=== PATIENT | female | born 1965 | race Caucasian/White ===

== ENCOUNTER 2017-01-31 14:39 | Emergency (ER) | payer OTHER ==
[2017-01-31 15:54] LABS: RBC URINE 6 /hpf (0-3); URINE BACTERIA RARE (<OCC); URINE BILIRUBIN NEGATIVE (NEGATIVE); URINE BLOOD 1+ (NEGATIVE); URINE COLOR Yellow (YELLOW); URINE GLUCOSE (UA) NORMAL (Normal); URINE HYALINE CAST 0-2 /lpf (0-2); URINE KETONE NEGATIVE (NEGATIVE); URINE LEUKOCYTE ESTERASE NEG Leu/uL (Negative); URINE PROTEIN NEGATIVE (NEGATIVE); WBC URINE 1 /hpf (0-5)
[2017-01-31 19:52] LABS: BASO % 0.1 % (0.0-2.0); EOS # 0.1 K/uL (0.0-0.7); EOS % 0.7 % (0.0-4.0); HEMATOCRIT 41.5 % (34.0-47.0); LYMPH % 27.3 % (20.0-40.0); MEAN CELL VOLUME 89.6 fL (81.0-99.0); MEAN CORPUSCULAR HEMOGLOBIN 30.4 pg (27.0-31.0); MEAN PLATELET VOLUME 9.1 fL (7.2-11.7); MONO # 0.5 K/uL (0.0-0.8); MONO % 6.4 % (0.0-10.0); NRBC % 0.1 % (0.0-2.0); RED CELL DISTRIBUTION WIDTH 14.1 % (11.5-14.5); WHITE BLOOD COUNT 7.5 K/uL (4.8-10.8)
[2017-01-31 20:02] LABS: CHLORIDE 95 mmol/L (98-107); POTASSIUM 3.9 mmol/L (3.6-5.2); SODIUM 140 mmol/L (132-148)
[2017-01-31 20:04] LABS: ALB/GLOB RATIO 1.2 (1.0-2.1); ALKALINE PHOSPHATASE 75 U/L (38-126); AST/SGOT 26 U/L (14-36); BILIRUBIN,TOTAL 0.5 mg/dL (0.2-1.3); CARBON DIOXIDE 29 mmol/L (22-30); GFR AFRICAN-AMERICAN > 60; TOTAL PROTEIN 8.3 g/dL (6.3-8.3)
[2017-01-31 20:05] LABS: ALT/SGPT 44 U/L (9-52); BLOOD UREA NITROGEN 11 mg/dL (7-17); CALCIUM 9.6 mg/dl (8.6-10.4); GLUCOSE,RANDOM 89 mg/dL (65-105)
[2017-01-31] MEDS ORDERED: Sodium Chloride 0.9% 1,000 ML IV ONE (20:17)
[2017-01-31] MEDS ORDERED: Sodium Chloride 0.9% 1,000 ML ONE (21:14)
--- NOTE | 2017-01-31 22:28 | US ---
EXAM: US Pelvis Complete, Transabdominal CLINICAL HISTORY: 51 years old, female; Pain; Pelvic pain; Additional info: Left pelvic pain TECHNIQUE: Real-time transabdominal pelvic ultrasound (complete) with image documentation. COMPARISON: No relevant prior studies available. FINDINGS: Uterus/cervix: Retroverted uterus. Uterus measures 7.1 x 3.5 x 4.7 cm in size. No myometrial mass. Endometrium: 0.7 cm in thickness. Nabothian cyst. Right ovary: 2.7 x 1.6 x 2.2 cm in size. 1.3 x 1.1 x 1.1 cm anechoic lesion. Small follicles. Normal flow. Left ovary: 3.2 x 1.8 x 2.7 cm in size. 1.7 x 1.2 x 1.5 cm anechoic lesion. Small follicles. Normal flow. Free fluid: No significant free fluid. Bladder: Unremarkable as visualized. IMPRESSION: 1. Ovarian cysts. 2. Incidental/non-acute findings are described above. EXAM: US Pelvis, Transvaginal CLINICAL HISTORY: 51 years old, female; Pain; Pelvic pain; Additional info: Left pelvic pain TECHNIQUE: Real-time transvaginal pelvic ultrasound (complete) with image documentation. Transvaginal imaging was used for better evaluation of the endometrium and adnexa. COMPARISON: No relevant prior studies available. FINDINGS: Uterus/cervix: Retroverted uterus. Uterus measures 7.1 x 3.5 x 4.7 cm in size. No myometrial mass. Endometrium: 0.7 cm in thickness. Nabothian cyst. Right ovary: 2.7 x 1.6 x 2.2 cm in size. 1.3 x 1.1 x 1.1 cm anechoic lesion. Small follicles. Normal flow. Left ovary: 3.2 x 1.8 x 2.7 cm in size. 1.7 x 1.2 x 1.5 cm anechoic lesion. Small follicles. Normal flow. Free fluid: No significant free fluid. Bladder: Empty bladder which cannot be evaluated with this probe.
--- NOTE | 2017-01-31 23:00 | C.PDOC ---
Time Seen by Provider: 01/31/17 19:50 Chief Complaint (Nursing): Abdominal Pain History Per: Patient Onset/Duration Of Symptoms: Days (about 1 week), Intermittent Episodes Current Symptoms Are (Timing): Still Present Severity: Moderate Location Of Pain/Discomfort: LLQ Quality Of Discomfort: "Pain" Exacerbating Factors: None Alleviating Factors: None Additional History Per: Prior Records Abnormal Vaginal Bleeding: No Past Medical History Reviewed: Historical Data, Nursing Documentation, Vital Signs Vital Signs: Last Vital Signs Temp 98.6 F 01/31/17 21:22 Pulse 64 01/31/17 21:22 Resp 18 01/31/17 21:22 BP 98/66 L 01/31/17 21:22 Pulse Ox 98 01/31/17 21:22 - Medical History PMH: HTN Family History: States: Unknown Family Hx - Social History Hx Tobacco Use: No Hx Alcohol Use: No Hx Substance Use: No - Immunization History Hx Tetanus Toxoid Vaccination: No Hx Influenza Vaccination: No Hx Pneumococcal Vaccination: No Review Of Systems Except As Marked, All Systems Reviewed And Found Negative. Constitutional: Negative for: Fever Cardiovascular: Negative for: Chest Pain Respiratory: Positive for: Cough. Negative for: Shortness of Breath, Hemoptysis Gastrointestinal: Negative for: Vomiting, Diarrhea Genitourinary: Positive for: Pelvic Pain. Negative for: Dysuria Musculoskeletal: Negative for: Neck Pain, Back Pain Skin: Negative for: Rash Neurological: Negative for: Weakness, Numbness Physical Exam - Physical Exam Appears: Non-toxic, No Acute Distress Skin: Normal Color, Warm, Dry, No Rash Head: Atraumatic, Normacephalic Eye(s): bilateral: Normal Inspection, PERRL, EOMI Neck: Normal ROM, Supple Cardiovascular: Rhythm Regular Respiratory: Normal Breath Sounds, No Accessory Muscle Use Gastrointestinal/Abdominal: Soft, Tenderness (mild LLQ), No Guarding, No Rebound Back: No CVA Tenderness Extremity: Normal ROM Neurological/Psych: Oriented x3, Normal Motor, Normal Sensation ED Course And Treatment - Laboratory Results Result Diagrams: 01/31/17 19:46 01/31/17 19:46 Lab Interpretation: No Acute Changes Urine POC: Negative O2 Sat by Pulse Oximetry: 98 Pulse Ox Interpretation: Normal - CT Scan/US Pelvic US Other Rad Studies (CT/US): Read By Radiologist, Radiology Report Reviewed CT/US Interpretation: IMPRESSION: 1. Ovarian cysts. 2. Incidental/non-acute findings are described above. Reassessment Condition: Improved Disposition Counseled Patient/Family Regarding: Studies Performed, Diagnosis, Need For Followup, Rx Given - Disposition Referrals: Antione Ramos [Staff Provider] - Disposition: HOME/ ROUTINE Disposition Time: 23:00 Condition: IMPROVED Additional Instructions: Follow up with a [employer] for further evaluation and treatment. Return to the ER if you develop fever, vomiting, vaginal bleeding or discharge, worsening of symptoms or if you have any other concerns. Prescriptions: Naproxen [Naprosyn] 1 tab PO BID PRN #20 tab PRN Reason: Pain Instructions: Ovarian Cyst (ED) Forms: [employer] (Palauan) Print Language: SCOTTISH - Clinical Impression Clinical Impression: Ovarian cyst, bilateral
[2017-01-31 23:13] VITALS: BP 131/82; PULSE 82; RESP 16; TEMP 97.6; O2SAT 97
== END 2017-01-31 23:13 | disposition home or self-care (01) ==
LOC: C.ER 14:39
DX: N83.202 Unspecified ovarian cyst, left side (principal); N83.201 Unspecified ovarian cyst, right side
CPT/HCPCS: 76830; 76856; 80053; 81001; 83690; 84703; 85025; 85610; 85730; 96361; 96374; 99285; J1885; J7040

== ENCOUNTER 2017-04-23 09:41 | Emergency (ER) | payer OTHER ==
[2017-04-23 09:42] VITALS: BMI 32.9
[2017-04-23 09:50] VITALS: BP 142/88; PULSE 56; RESP 20; TEMP 97.7; O2SAT 99
[2017-04-23 10:47] LABS: BASO % 0.3 % (0.0-2.0); EOS # 0.1 K/uL (0.0-0.7); EOS % 2.3 % (0.0-4.0); HEMATOCRIT 35.7 % (34.0-47.0); LYMPH # 1.8 K/uL (1.0-4.3); LYMPH % 41.8 % (20.0-40.0); MEAN CORPUSCULAR HGB CONC 34.8 g/dL (33.0-37.0); MEAN PLATELET VOLUME 9.2 fL (7.2-11.7); MONO # 0.4 K/uL (0.0-0.8); MONO % 8.7 % (0.0-10.0); RED CELL DISTRIBUTION WIDTH 13.4 % (11.5-14.5); WHITE BLOOD COUNT 4.2 K/uL (4.8-10.8)
[2017-04-23 10:51] LABS: ALB/GLOB RATIO 1.3 (1.0-2.1); ALKALINE PHOSPHATASE 65 U/L (38-126); ALT/SGPT 49 U/L (9-52); AST/SGOT 27 U/L (14-36); BILIRUBIN,TOTAL 0.3 mg/dL (0.2-1.3); BLOOD UREA NITROGEN 12 mg/dL (7-17); CALCIUM 8.1 mg/dl (8.6-10.4); CARBON DIOXIDE 29 mmol/L (22-30); CHLORIDE 104 mmol/L (98-107); GFR AFRICAN-AMERICAN > 60; GLUCOSE,RANDOM 107 mg/dL (65-105); POTASSIUM 4.1 mmol/L (3.6-5.2); SODIUM 139 mmol/L (132-148); TOTAL PROTEIN 7.1 g/dL (6.3-8.3)
--- NOTE | 2017-04-23 10:52 | C.PDOC ---
History Of Present Illness 51 y/o female with no PMHx presents with throat pain and difficulty swallowing since eating chicken soup on Tuesday. She states that she recalls swallowing a piece of chicken and felt there was a piece of bone in it, which she was unable to remove. Pain is mostly left sided, feels sharp, and worsens with swallowing. Patient states she has only been eating oatmeal-like foods and liquids for the past week. Denies fever. Time Seen by Provider: 04/23/17 09:53 Chief Complaint (Nursing): ENT Problem History Per: Patient History/Exam Limitations: None Onset/Duration Of Symptoms: Days (x 6) Current Symptoms Are (Timing): Still Present Past Medical History Reviewed: Historical Data, Nursing Documentation, Vital Signs Vital Signs: Last Vital Signs Temp 97.7 F 04/23/17 09:48 Pulse 56 L 04/23/17 09:48 Resp 20 04/23/17 09:48 BP 142/88 04/23/17 09:48 Pulse Ox 99 04/23/17 12:25 - Medical History PMH: HTN Denies: Chronic Kidney Disease Surgical History: No Surg Hx Family History: States: Unknown Family Hx - Social History Hx Tobacco Use: No Hx Alcohol Use: No Hx Substance Use: No - Immunization History Hx Tetanus Toxoid Vaccination: No Hx Influenza Vaccination: No Hx Pneumococcal Vaccination: No Review Of Systems Except As Marked, All Systems Reviewed And Found Negative. Constitutional: Negative for: Fever Respiratory: Negative for: Shortness of Breath Physical Exam - Physical Exam Additional Physical Exam Comments: Constitutional: No acute distress. Head: Normocephalic. Atraumatic. Eyes: PERRL. ENT: Throat appears normal. No stridor. No palpable mass. Neck: Supple. Cardiovascular: Regular rate. Radial pulse 2+ bilaterally. Chest: No tenderness. Respiratory: Clear to auscultation bilaterally. GI: Soft. Nontender. Nondistended. Back: No CVA tenderness. Musculoskeletal: No tenderness or swelling of extremities. Skin: No rash. Neurologic: Alert, no focal deficit. ED Course And Treatment - Laboratory Results Result Diagrams: 04/23/17 10:37 04/23/17 10:37 O2 Sat by Pulse Oximetry: 99 (RA) Pulse Ox Interpretation: Normal Medical Decision Making Medical Decision Making: Plan: Labs POC urine CT Neck Soft Tissue w/o contrast Toradol [address] Neck Soft Tissue: FINDINGS: No retained radiodense foreign body is encountered throughout the visualized aerodigestive tract in the neck or soft tissues local to it. NASOPHARYNX: Unremarkable. SUPRAHYOID NECK: Unremarkable oropharynx, oral cavity, parapharyngeal space and retropharyngeal space. INFRAHYOID NECK: Unremarkable larynx, hypopharynx, and supraglottic space. Vocal cords intact. MASS: None. GLANDS: Parotid and submandibular glands unremarkable. Small but nonfocal thyroid gland appreciated. LYMPH NODES: Normal. No lymphadenopathy. CERVICAL SPINE: No fracture or focal lesion. OTHER FINDINGS: Limited vascular calcifications are identified in the neck. CT is a granuloma noted at the left pulmonary apex. IMPRESSION: No retained radiodense foreign body appreciable throughout the visualized cervical aerodigestive tract. No definite other suspicious findings in this unenhanced examination of diminished diagnostic power. Disposition Counseled Patient/Family Regarding: Studies Performed, Diagnosis, Need For Followup, Rx Given - Disposition Disposition: HOME/ ROUTINE Disposition Time: 12:17 Condition: STABLE Prescriptions: Mag&Al/Simet/Diphen/Lido [First Magic Mouthwash] 30 ml MM TID #1 kit Instructions: Foreign Body Ingestion (ED) Forms: [employer] (Persian) - Clinical Impression Clinical Impression: Throat pain - Scribe Statement The provider has reviewed the documentation as recorded by the Scribe (Malia Felix) Provider Attestation: All medical record entries made by the Scribe were at my direction and personally dictated by me. I have reviewed the chart and agree that the record accurately reflects my personal performance of the history, physical exam, medical decision making, and the department course for this patient. I have also personally directed, reviewed, and agree with the discharge instructions and disposition.
--- NOTE | 2017-04-23 12:11 | CT ---
PROCEDURE: CT NECK WITHOUT CONTRAST HISTORY: swallowed foreign body COMPARISON: None. TECHNIQUE: CT of the neck without intravenous contrast. Coronal and sagittal reformats generated. Radiation dose: DLP mGy-cm This CT exam was performed using one or more of the following dose reduction techniques: Automated exposure control, adjustment of the mA and/or kV according to patient size, and/or use of iterative reconstruction technique. FINDINGS: No retained radiodense foreign body is encountered throughout the visualized aerodigestive tract in the neck or soft tissues local to it. NASOPHARYNX: Unremarkable. SUPRAHYOID NECK: Unremarkable oropharynx, oral cavity, parapharyngeal space and retropharyngeal space. INFRAHYOID NECK: Unremarkable larynx, hypopharynx, and supraglottic space. Vocal cords intact. MASS: None. GLANDS: Parotid and submandibular glands unremarkable. Small but nonfocal thyroid gland appreciated. LYMPH NODES: Normal. No lymphadenopathy. CERVICAL SPINE: No fracture or focal lesion. OTHER FINDINGS: Limited vascular calcifications are identified in the neck. CT is a granuloma noted at the left pulmonary apex. IMPRESSION: No retained radiodense foreign body appreciable throughout the visualized cervical aerodigestive tract. No definite other suspicious findings in this unenhanced examination of diminished diagnostic power.
== END 2017-04-23 13:07 | disposition home or self-care (01) ==
LOC: C.ER 09:41
DX: R07.0 Pain in throat (principal); I10 Essential (primary) hypertension
CPT/HCPCS: 70490; 80053; 85025; 96374; 99283; J1885